=== PATIENT | female | born 1985 | race Caucasian/White ===

== ENCOUNTER 2018-10-11 15:23 | Emergency (ER) | payer OTHER ==
[~2018-10-11] VITALS: Ht 167.6 cm; Wt 63.5 kg
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
[2018-10-11] MEDS ORDERED: KETOROLAC TROMETHAMINE INJ 30 MG/ML VIAL ONE (16:17)
[2018-10-11] MEDS: KETOROLAC TROMETHAMINE INJ 60 MG/2 ML VIAL IM ONE (16:21)
--- NOTE | 2018-10-11 16:22 | NUR ---
PT MEDICATED FOR PAIN. PT VERY ANXIOUS. WAITING FOR RADIOLOGY.
[2018-10-11] MEDS ORDERED: LORAZEPAM 1 MG TABLET ONE (17:40)
[2018-10-11] MEDS: LORAZEPAM 0.5 MG TABLET PO ONE (17:42)
--- NOTE | 2018-10-11 17:43 | NUR ---
PT BECOMING ANXIOUS. 0.5MG ATIVAN PO GIVEN.
--- NOTE | 2018-10-11 18:05 | NUR ---
CT SHOWS FACIAL FRACTURES. PT MEDICALLY CLEARED TO LEAVE IN CUSTODY.
[2018-10-11] MEDS ORDERED: oxyCODONE/APAP (5/325 MG) 1 UDTAB TABLET ONE (18:12)
[2018-10-11] MEDS: oxyCODONE/APAP (5/325 MG) 1 UDTAB TABLET PO ONE (18:16)
--- NOTE | 2018-10-11 18:17 | NUR ---
PERCOCET GIVEN TO PT FOR TRIP TO [facility].
--- NOTE | 2018-10-11 18:17 | NUR ---
PT LEFT WITH PD.
--- NOTE | 2018-10-11 18:20 | NUR ---
PD LEFT WITH PT BEFORE CD COULD BE DELIVERED.
[2018-10-11 18:21] VITALS: BP 142/68
== END 2018-10-11 18:21 ==
LOC: ER 15:27
DX: S02.40FA Zygomatic fracture, left side, initial encounter for closed fracture (principal); S02.32XA Fracture of orbital floor, left side, initial encounter for closed fracture; Z87.19 Personal history of other diseases of the digestive system; Y04.0XXA Assault by unarmed brawl or fight, initial encounter; Y93.89 Activity, other specified; Y92.89 Other specified places as the place of occurrence of the external cause; Y99.8 Other external cause status
CPT/HCPCS: 70450-TC; 70486-TC; A4606; J1885; Z7610